=== PATIENT | male | born 1945 | race Caucasian/White ===

== ENCOUNTER 2022-08-03 14:31 | Outpatient (CLI) | payer MEDICARE, BC, SELFPAY ==
--- NOTE | 2022-08-03 12:15 | DI.RAD_ITS ---
Exam(s) XR LUMBAR SPINE COMPLETE EXAM: XR LUMBAR SPINE COMPLETE CLINICAL HISTORY: evaluate pathology,back pain, m54.50. TECHNIQUE: 2D digital imaging was performed of the lumbar spine. Five images were obtained. AP, la teral, right oblique, left oblique and L5-S1 spot views were obtained. COMPARISON: No exams were available for comparison FINDINGS: BONES: No fracture or destructive lesion. There are endplate osteophytes at multiple levels of the maryuri mbar spine. There are degenerative changes of the facets in the lower lumbar spine. DISKS: There is mild disc space narrowing at T12-L1 and L3-L4. ALIGNMENT: There is a mild left convex curvature of the lumbar spine. 2-3 mm anterolisthesis of L4 o n L5 is noted which is likely degenerative. No spondylolysis. SOFT TISSUE: Atherosclerosis is present. IMPRESSION: [id number] degenerative changes in the lumbar spine. DATA REPOSITORY: RADIATION DOSE DELIVERED:
== END 2022-08-03 14:51 ==
LOC: DI 14:32
PROVIDERS: Visit Provider Nurse Practitioner Family
DX: M51.36 Other intervertebral disc degeneration, lumbar region; M54.50 Low back pain, unspecified
CPT/HCPCS: 72110

== ENCOUNTER 2023-02-15 19:02 | Emergency (ER) | payer MEDICARE, BC, SELFPAY ==
[2023-02-15] VITALS (35 sets, daily range): BP systolic 126–173; BP diastolic 36–87; PULSE 44–66; RESP 18; TEMP 36.2–36.3; O2SAT 95–99
[2023-02-15] MEDS: DEXTROSE 5%-0.45% SALINE 1,000 ML 100 ML IV (19:22)
[2023-02-15 19:23] LABS: Abs Immature Grans 0.01 10^3/uL (0.0-0.06); Absolute Basophil Count 0.05 10^3/uL (0.0-0.2); Absolute Lymphocyte Count 2.91 10^3/uL (1.2-3.4); Absolute Monocyte Count 0.68 10^3/uL (0.1-0.8); Basophils % 0.7; Eosinophils % 1.5; HCT 49.2 % (40.0-50.0); HGB 16.7 g/dL (13.5-17.5); Immature Grans % 0.1; Lymphocytes % 42.5; MCH 31.6 pg (27.0-33.0); MCHC 33.9 % (32.0-36.0); MCV 93 fL (80-95); Monocytes % 9.9; Neutrophils % 45.3; Platelet Count 147 10^3/uL (130-400); RBC 5.28 10^6/uL (4.36-5.78); RDW-SD 41.8 fL; WBC 6.85 10^3/uL (4.4-10.8)
[2023-02-15 19:37] LABS: ALT 35 U/L (16-63); AST 80 U/L (15-37); Albumin 4.2 g/dL (3.4-5.0); Alkaline Phosphatase 86 U/L (46-116); Anion Gap 8.9 mmol/L (3-11); BUN 24 mg/dL (7-18); Bilirubin, Total 0.5 mg/dL (0.2-1.0); CO2 29.1 mmol/L (21.0-32.0); CREATININE 1.4 mg/dL (0.70-1.30); Calcium 9.9 mg/dL (8.5-10.1); Chloride 102 mmol/L (98-107); Estimated GFR 51.45 (mL/min/1.73m2); Glucose 115 mg/dL (74-106); Potassium 3.8 mmol/L (3.5-5.1); Sodium 140 mmol/L (136-145); Total Protein 8.3 g/dL (6.4-8.2)
--- NOTE | 2023-02-15 20:02 | ED.GENADUL_ITS ---
Discharge Plan Disposition Patient Disposition: Home Condition: Good Discharge Details Clinical Impression: Hypoglycemia Primary Care Provider: None,None ED Provider: Dwight Courtney Home Meds and New Rx's Prescriptions: No Action insulin degludec [Tresiba FlexTouch U-100] 100 unit/mL (3 mL) insulin pen 20 unit subcut DAILY insulin aspart U-100 [Novolog FlexPen U-100 Insulin] 100 unit/mL (3 mL) in sulin pen 1 sliding scale dose subcut TID metoprolol succinate 25 mg tablet extended release 24 hr 25 mg PO DAILY rosuvastatin 40 mg tablet 40 mg PO DAILY aspirin 81 mg capsule 81 mg PO DAILY Discharge Instructions Instructions: Hypoglycemia in a Person with Diabetes (ED) Additional Instructions: At this time your blood sugar has stabilized. Please continue to snack throughout the night. Please monitor your blood sugars closely. If you notice any worsening of your symptoms, or any new symptoms such as vomiting, diarrhea, fever, chills, shortness of breath, chest pain, numbness, weakness, or fainting , please return immediately to the emergency department for reevaluation. Please follow up with your primary care provider as soon as possible for reassessment and reevaluation. As always, it was a pleasure participating in your medical care today. 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 Patient normally takes 20 units of short acting insulin and 20 units daily of his long-acting insulin. This evening he took 22 units total of his short acting insulin at once. He immediately came to the ER for further assessment. He states that it was an accident and simply got the colors mixed up when he reached for his insulin. He denies any symptoms of chest pain, shortness of breath, lightheadedness, numbness, tingling, or weakness. Exam demonstrates a well-appearing male, no deficits. Bedside blood glucose was 120. We will start D5 half-normal at 100 cc/h, we will monitor his glucose closely and reassess. 8:14 PM Blood sugars dropped to 85, patient remains asymptomatic. We will give an amp of D50 and continue D5 half-normal. We will also give crackers and peanut butter. 9 PM Blood sugar remains at 85, additional amp of D50 will be given, and D5 half- normal will be increased to 200 cc/h. 9:37 PM Blood sugar is 145. We will continue to monitor closely. Patient remains asymptomatic. 11:53 PM Patient's blood sugar is 165. He feels very well. Patient's blood sugars no longer decreasing. D5 was stopped over an hour and a half ago. He is doing very well. Patient stable for discharge. Discussed red flags which to return. I have extensively reviewed the treatment plan and discharge instructions with the patient. I have addressed all patient concerns at this time. The patient was made aware of what symptoms to monitor for that would warrant a return to the emergency department. Discussed the plan with the patient, they demonstrate verbal understanding and agreement with our assessment and plan at this time. The documentation in this chart was dictated using [employer] dictation software. Please excuse any dictation errors. HPI General Date/Time Provider Initiated Documentation: 02/15/23 19:11 . 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 Patient normally takes 20 units of short acting insulin and 20 units daily of his long-acting insulin. This evening he took 22 units total of his short acting insulin at once. He immediately came to the ER for further assessment. He states that it was an accident and simply got the colors mixed up when he reached for his insulin. He denies any symptoms of chest pain, shortness of breath, lightheadedness, numbness, tingling, or weakness. Related Data Home Medications Medication Instructions Recorded Confirmed insulin aspart U-100 100 unit/mL 1 sliding scale dose subcut TID 07/26/22 02/15/23 (3 mL) subcutaneous pen (Novolog FlexPen U-100 Insulin aspart) insulin degludec 100 unit/mL (3 20 unit subcut DAILY 07/26/22 02/15/23 mL) subcutaneous pen (Tresiba FlexTouch U-100 insulin) metoprolol succinate 25 mg 25 mg PO DAILY 07/26/22 02/15/23 tablet,extended release 24 hr rosuvastatin 40 mg tablet 40 mg PO DAILY 07/26/22 02/15/23 aspirin 81 mg capsule 81 mg PO DAILY 02/15/23 02/15/23 Allergies Allergy/AdvReac Type Severity Reaction Status Date / Time No Known Allergies Allergy Verified 02/15/23 19:25 General Stated Complaint: [employer] MAXIMINO: 3 Review of Systems All systems reviewed & are unremarkable except as noted in HPI and below PFSH All Active Problems (Updated 02/15/23 @ 23:37 by Dwight Courtney DO) Hypoglycemia (Acute) Social History Smoking/Tobacco Use Status: Never Smoking risk assessment performed?: Yes Alcohol Intake: current Alcohol Intake frequency: a few times a week Substance use type: does not use Do you feel safe at home: Yes Do you feel safe in your relationship?: Yes Exam Narrative Exam Narrative: 1.Const: Well-nourished, Well-developed, appearing stated age 2.Eyes: PERRL, no conjunctival injection, and symmetrical lids. 3.ENT: Atraumatic external nose and ears. Slightly dry MM. Neck: Symmetric, trachea midline, No thyromegaly. 4.CVS: +S1/S2, No murmurs or gallops. Peripheral pulses 2+ and equal in all extremities. Brisk capillary refill in all extremities. 5.RESP: Unlabored respiratory effort. Clear to auscultation bilaterally. No wheezes rales or rhonchi 6.GI: Soft, Nontender/Nondistended, No hepatosplenomegaly. No guarding or rebound. 7.MSK: Normocephalic/Atraumatic, Extremities w/o deformity or ttp No cyanosis or clubbing, Normal movement of all extremities 8.Skin: Warm, Dry. No rashes or lesions. 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 Sensation grossly intact, no focal neurologic deficits. 10.Psych: (AAO) x3. Appropriate mood and affect Course Vital Signs Vital signs: Vital Signs Temperature 36.2 C L 02/15/23 19:07 Pulse 55 L 02/15/23 19:07 Respiratory Rate 18 02/15/23 19:07 Blood Pressure 172/87 H 02/15/23 19:07 Pulse Oximetry 99 02/15/23 19:07 Temperature 36.3 C L 02/15/23 19:12 Temperature Source Temporal Artery Scan 02/15/23 19:07 Pulse 45 L 02/15/23 19:32 Respiratory Rate 18 02/15/23 19:12 Respiratory Effort Normal 02/15/23 19:12 Respiratory Depth Normal 02/15/23 19:12 Respiratory Pattern Normal 02/15/23 19:12 Blood Pressure 139/64 02/15/23 19:32 Blood Pressure Mean 88 02/15/23 19:32 Blood Pressure Position Sitting 02/15/23 19:07 Pulse Oximetry 96 02/15/23 19:32 Oxygen Delivery Method Room Air 02/15/23 19:12 Oxygen Flow Rate 0 02/15/23 19:07 Pain Level 0 02/15/23 19:12 Lab/Test Results Lab/Test Results: Laboratory Tests Range/Units 02/15/23 19:15 WBC (4.4-10.8) 10^3/uL 6.85 RBC (4.36-5.78) 10^6/uL 5.28 Hgb (13.5-17.5) g/dL 16.7 Hct (40.0-50.0) % 49.2 MCV (80-95) fL 93 MCH (27.0-33.0) pg 31.6 MCHC (32.0-36.0) % 33.9 RDW (11.8-14.1) % 12.0 Plt Count (130-400) 10^3/uL 147 MPV (8.0-11.0) fL 9.0 Immature Gran % 0.1 Neutrophils % 45.3 Lymphocytes % 42.5 Monocytes % 9.9 Eosinophils % 1.5 Basophils % 0.7 Nucleated RBC % (0.0-0.3) % 0.0 Absolute Neutrophils (1.2-6.7) 10^3/uL 3.10 Absolute Lymphocytes (1.2-3.4) 10^3/uL 2.91 Absolute Monocytes (0.1-0.8) 10^3/uL 0.68 Absolute Eosinophils (0.0-0.7) 10^3/uL 0.10 Absolute Basophils (0.0-0.2) 10^3/uL 0.05 Sodium (136-145) mmol/L 140 Potassium (3.5-5.1) mmol/L 3.8 Chloride (98-107) mmol/L 102 Carbon Dioxide (21.0-32.0) mmol/L 29.1 Anion Gap (3-11) mmol/L 8.9 BUN (7-18) mg/dL 24 H Creatinine (0.70-1.30) mg/dL 1.4 H Est GFR (CKD-EPI 2020) (mL/min/1.73m2) 51.45 Glucose (74-106) mg/dL 115 H Calcium (8.5-10.1) mg/dL 9.9 Total Bilirubin (0.2-1.0) mg/dL 0.5 AST (15-37) U/L 80 H ALT (16-63) U/L 35 Alkaline Phosphatase (46-116) U/L 86 Total Protein (6.4-8.2) g/dL 8.3 H Albumin (3.4-5.0) g/dL 4.2 Critical Care Time Critical Care Time Critical Care Time: Yes Total Critical Care Time: 45 Attestation: Upon my evaluation, this patient had a high probability of imminent or life- threatening deterioration, which required my direct attention, intervention, and personal management. I have personally provided 45 minutes of critical care time exclusive of time spent on separately billable procedures. Time includes review of laboratory data, radiology results, discussion with consultants, and monitoring for potential decompensation. Interventions were performed as documented. PAWSS Have you Been Recently Intoxicated or Drunk Within the Last 30 days?: No Have you Ever Experienced Previous Episodes of Alcohol Withdrawal?: No Have you ever Experienced Withdrawal Seizures?: No Have you ever Experienced Delirium Tremens(DT)s?: No Have you ever undergone Alcohol Rehabilitation Treatment (i.e, inpt ot outpatient treatment programs)?: No Have you ever Experienced Blackouts?: No Have you ever Combined Alcohol with other Downers within the last 90 days?: No Have you ever Combined Alcohol with any other Substance of Abuse during the last 90 days?: No Positive Blood Alcohol level on Presentation? [PCS.BAL]: Unable to Obtain Evidence of Increased Autonomic Activity (i.e. HR>120, tremor, sweating, agitation, nausea)?: Unable to Obtain Result: 0
[2023-02-15] MEDS: Dextrose 50%-Water 25 GM/50 ML SYR IVP ×2 (20:13→21:14)
== END 2023-02-15 23:56 | disposition home or self-care (01) ==
PROVIDERS: Emergency Provider Student in an Organized Health Care Education/Training Program
DX: T38.3X1A Poisoning by insulin and oral hypoglycemic [antidiabetic] drugs, accidental (unintentional), initial encounter (principal); E11.649 Type 2 diabetes mellitus with hypoglycemia without coma; Z79.4 Long term (current) use of insulin; E78.00 Pure hypercholesterolemia, unspecified; Z79.82 Long term (current) use of aspirin; Z79.899 Other long term (current) drug therapy
CPT/HCPCS: 80053; 82962; 96365; 96366; 99291; 85025

== ENCOUNTER → 2024-10-25 10:18 | Outpatient (BNVA) | payer MEDICARE, BC, SELFPAY | PROVIDERS: Visit Provider Student in an Organized Health Care Education/Training Program | DX: M65.321 Trigger finger, right index finger (principal) | CPT/HCPCS: 20550; J1010 ==

== ENCOUNTER 2025-03-05 21:34 | Emergency (ER) | payer MEDICARE, BC, SELFPAY ==
[2025-03-05] VITALS (9 sets, daily range): BP systolic 132–193; BP diastolic 62–78; PULSE 80–86; RESP 12–21; O2SAT 99
--- NOTE | 2025-03-05 21:50 | W.ED.GENAD ---
Discharge Plan Discharge Details Chief Complaint: Diabetes Primary Care Provider: Unknown,Unknown ED Provider: Dwight Courtney Home Meds and New Rx's Prescriptions: No Action insulin degludec [Tresiba FlexTouch U-100] 100 unit/mL (3 mL) insulin pen 16 unit subcut DAILY insulin aspart U-100 [Novolog FlexPen U-100 Insulin] 100 unit/mL (3 mL) insulin pen 1 sliding scale dose subcut TID metoprolol succinate 25 mg tablet extended release 24 hr 25 mg PO DAILY rosuvastatin 40 mg tablet 40 mg PO DAILY aspirin 81 mg capsule 81 mg PO DAILY HPI <Sue Valenzuela NP - Last Filed: 03/06/25 00:34> General Mode of arrival: ambulatory. Date/Time Provider Initiated Documentation: 03/05/25 21:43. Limitations to Documentation: no limitations. Information obtained by: patient, RN notes reviewed and old records reviewed. HPI Narrative: 79-year-old male presents to the ER after accidentally taking 16 units of NovoLog approximately an hour ago prior to arrival. He normally takes 4 units of NovoLog with meals and 16 units of Tresiba. He realized instantly his mistake and took 310 mg glucose tablets. Currently he denies any symptoms and his blood sugar is 177 upon arrival. Related Data Home Medications ?Medication ?Instructions ?Recorded ?Confirmed insulin aspart U-100 100 unit/mL 1 sliding scale dose subcut TID 07/26/22 03/05/25 (3 mL) subcutaneous pen (Novolog FlexPen U-100 Insulin aspart) insulin degludec 100 unit/mL (3 16 unit subcut DAILY 07/26/22 03/05/25 mL) subcutaneous pen (Tresiba FlexTouch U-100 insulin) metoprolol succinate 25 mg 25 mg PO DAILY 07/26/22 03/05/25 tablet,extended release 24 hr rosuvastatin 40 mg tablet 40 mg PO DAILY 07/26/22 03/05/25 aspirin 81 mg capsule 81 mg PO DAILY 02/15/23 03/05/25 Allergies Allergy/AdvReac Type Severity Reaction Status Date / Time No Known Allergies Allergy Verified 03/05/25 21:42 General Stated Complaint: Diabetes MAXIMINO: 3 Review of Systems <Sue Valenzuela NP - Last Filed: 03/06/25 00:34> All systems reviewed & are unremarkable except as noted in HPI and below Endocrine Endocrine: Reports as per HPI Exam <Sue Valenzuela NP - Last Filed: 03/06/25 00:34> Narrative Exam Narrative: Constitutional: Alert and oriented x3. Appears stated age. Normal body habitus. Head: Normocephalic, no trauma. Eyes: Pupils PERRL, Red reflex noted, EOM's intact. Eyelids symmetrical without lesions, discharge, or swelling. ENT: Bilateral TM's WNL, External ear normal to inspection, no mastoid TTP, swelling, or erythema, Nasal turbinates WNL, no nasal discharge. Normal dentition, Posterior pharynx WNL, no exudate. Chest: RRR, Normal S1, S2, distal pulses intact. Resp: Lungs clear to auscultation bilaterally, no wheezes, rales, or rhonchi. Abdomen: Soft, non-distended, Normoactive bowel sounds all 4 quads. Musculoskeletal: Normal gait, Moves all 4 extremities without difficulty. Skin: No suspicious rashes or lesions. Capillary refill less than 2 sec. Neurologic: Cranial nerves II-XII intact. Alert and oriented x 3. Motor: No deficits noted. Sensory: Intact bilaterally all 4 extremities. Hematologic/Lymphatic: No ecchymosis, no lymphadenopathy. Course <Sue Valenzuela NP - Last Filed: 03/06/25 00:34> Vital Signs Vital signs: Vital Signs Pulse 85 03/05/25 21:38 Respiratory Rate 16 03/05/25 21:38 Blood Pressure 193/78 H 03/05/25 21:38 Pulse Oximetry 99 03/05/25 21:38 Pulse 85 03/05/25 21:44 Respiratory Rate 16 03/05/25 21:44 Blood Pressure 193/78 H 03/05/25 21:44 Blood Pressure Position Sitting 03/05/25 21:44 Pulse Oximetry 99 03/05/25 21:44 Oxygen Delivery Method Room Air 03/05/25 21:44 Oxygen Flow Rate 0 03/05/25 21:44 Pain Level 0 03/05/25 21:44 Medical Decision Making <Sue Valenzuela NP - Last Filed: 03/06/25 00:34> 79-year-old male presents to the ER after accidentally taking 16 units of NovoLog approximately an hour ago prior to arrival. He normally takes 4 units of NovoLog with meals and 16 units of Tresiba. He realized instantly his mistake and took 310 mg glucose tablets. Currently he denies any symptoms and his blood sugar is 177 upon arrival. Will start an IV line and draw some labs and recheck his blood glucose every hour. Will consider feeding patient and also may be giving some D50. Patient requesting some dextrose, he has checked his own BGL and it is now 130. Patient given crackers and peanut butter, 1 amp D-25 given IVP. Repeat BGL 146 after amp of D25, will recheck BGL every 30 min. BGL 99 prior to second D25 ampule. Will order D5 NS at 100ml/hr and continue to monitor. 2349: BGL of 61, will give another D50 amp IVP. Care is to be handed off to oncoming provider Elvin Courtney for further observation and disposition. This text was generated using [employer] dictation system, please disregard any oddities of phrase or misspellings. Lab Data Lab results reviewed: Yes I reviewed the patient's lab results. Labs: Laboratory Tests Range/Units 03/05/25 21:55 WBC (4.4-10.8) 10^3/uL 4.77 RBC (4.36-5.78) 10^6/uL 4.78 Hgb (13.5-17.5) g/dL 15.0 Hct (40.0-50.0) % 44.4 MCV (80-95) fL 93 MCH (27.0-33.0) pg 31.4 MCHC (32.0-36.0) % 33.8 RDW (11.8-14.1) % 11.5 L Plt Count (130-400) 10^3/uL 135 MPV (8.0-11.0) fL 9.3 Immature Gran % % 0.0 Neutrophils % % 44.9 Lymphocytes % % 41.1 Monocytes % % 11.5 Eosinophils % % 1.9 Basophils % % 0.6 Nucleated RBC % (0.0-0.3) % 0.0 Absolute Neutrophils (1.2-6.7) 10^3/uL 2.14 Absolute Lymphocytes (1.2-3.4) 10^3/uL 1.96 Absolute Monocytes (0.1-0.8) 10^3/uL 0.55 Absolute Eosinophils (0.0-0.7) 10^3/uL 0.09 Absolute Basophils (0.0-0.2) 10^3/uL 0.03 Sodium (136-145) mmol/L 141 Potassium (3.5-5.1) mmol/L 3.8 Chloride (98-107) mmol/L 103 Carbon Dioxide (20.0-31.0) mmol/L 27.0 Anion Gap (3-11) mmol/L 11 BUN (9-23) mg/dL 24 H Creatinine (0.73-1.18) mg/dL 1.21 H Est GFR (CKD-EPI 2020) (mL/min/1.73m2) 57.64 Glucose (74-106) mg/dL 168 H Calcium (8.3-10.6) mg/dL 9.7 Total Bilirubin (0.2-1.2) mg/dL 0.6 AST (<34) U/L 64 H ALT (10-49) U/L 18 Alkaline Phosphatase (46-116) U/L 65 Total Protein (5.7-8.2) g/dL 7.4 Albumin (3.2-5.0) g/dL 4.4 <Zoran Rose MD - Last Filed: 03/05/25 23:43> Date: 03/05/25 Time: 23:43 Note: Patient was seen and evaluated with SUMAYA Valenzuela. I agree with treatment plan as discussed and documented. PFSH <Sue Valenzuela NP - Last Filed: 03/06/25 00:34> All Active Problems (Updated 10/26/24 @ 06:57 by Chandler Murry MD) Trigger finger, right index finger (Acute) Social History Smoking/Tobacco Use Status: Never Smoking risk assessment performed?: Yes Alcohol Intake: current Alcohol Intake frequency: a few times a week Substance use type: does not use Housing: house Do you feel safe at home: Yes Do you feel safe in your relationship?: Yes
[2025-03-05 22:08] LABS: Abs Immature Grans 0.00 10^3/uL (0.0-0.06); HCT 44.4 % (40.0-50.0); HGB 15.0 g/dL (13.5-17.5); Immature Grans % 0.0 %; MCH 31.4 pg (27.0-33.0); MCHC 33.8 % (32.0-36.0); MCV 93 fL (80-95); MPV 9.3 fL (8.0-11.0); Platelet Count 135 10^3/uL (130-400); RBC 4.78 10^6/uL (4.36-5.78); RDW 11.5 % (11.8-14.1); RDW-SD 39.2 fL; WBC 4.77 10^3/uL (4.4-10.8)
[2025-03-05] MEDS: Dextrose 25%-Water 10 ML SYR IVP ×2 (22:30→23:11)
[2025-03-05 22:32] LABS: ALT 18 U/L (10-49); AST 64 U/L (<34); Albumin 4.4 g/dL (3.2-5.0); Alkaline Phosphatase 65 U/L (46-116); Anion Gap 11 mmol/L (3-11); BUN 24 mg/dL (9-23); Bilirubin, Total 0.6 mg/dL (0.2-1.2); CO2 27.0 mmol/L (20.0-31.0); Calcium 9.7 mg/dL (8.3-10.6); Chloride 103 mmol/L (98-107); Glucose 168 mg/dL (74-106); Potassium 3.8 mmol/L (3.5-5.1); Sodium 141 mmol/L (136-145); Total Protein 7.4 g/dL (5.7-8.2)
[2025-03-05] MEDS: DEXTROSE 5%-0.9% SALINE 1,000 ML 100 ML IV (23:44)
[2025-03-05] MEDS: Dextrose 50%-Water 25 GM/50 ML SYR (23:59)
[2025-03-06] VITALS (11 sets, daily range): BP systolic 108–167; BP diastolic 50–93; PULSE 81–94; RESP 11–23; O2SAT 97–99
--- NOTE | 2025-03-06 01:22 | W.EDPROG ---
Date of service: 03/06/25 Time of Service: 01:23 Medical Decision Making Patient was signed out to me pending Accu-Chek rechecks. Patient has been observed, he has been in the ED greater than 4 hours. Sugars have normalized, blood sugar is now rising at a steady rate. Patient feels well and would like to go home. He has the Dexcom monitoring system which will alert if his sugar goes low again. He has multiple family members at home who will watch him tonight. Patient feels comfortable with the plan, and is requesting discharge. Discussed red flags for which to return. I have extensively reviewed the treatment plan and discharge instructions with the patient. I have addressed all patient concerns at this time. The patient was made aware of what symptoms to monitor for that would warrant a return to the emergency department. Discussed the plan with the patient, they demonstrate verbal understanding and agreement with our assessment and plan at this time. The documentation in this chart was dictated using [employer] dictation software. Please excuse any dictation errors. Discharge Plan Disposition Patient Disposition: Home Condition: Good Discharge Details Clinical Impression: Hypoglycemia Primary Care Provider: Unknown,Unknown ED Provider: Dwight Courtney Home Meds and New Rx's Prescriptions: No Action insulin degludec [Tresiba FlexTouch U-100] 100 unit/mL (3 mL) insulin pen 16 unit subcut DAILY insulin aspart U-100 [Novolog FlexPen U-100 Insulin] 100 unit/mL (3 mL) insulin pen 1 sliding scale dose subcut TID metoprolol succinate 25 mg tablet extended release 24 hr 25 mg PO DAILY rosuvastatin 40 mg tablet 40 mg PO DAILY aspirin 81 mg capsule 81 mg PO DAILY Discharge Instructions Additional Instructions: At this time your blood sugar has normalized and stabilized. Please continue eating when you get home, monitor your sugar closely with your glucose monitor. If you notice any worsening of your symptoms, or any new symptoms such as vomiting, diarrhea, fever, chills, shortness of breath, chest pain, numbness, weakness, or fainting , please return immediately to the emergency department for reevaluation. Please follow up with your primary care provider as soon as possible for reassessment and reevaluation. As always, it was a pleasure participating in your medical care today. Stand Alone Forms: Portal Information
== END 2025-03-06 01:28 | disposition home or self-care (01) ==
PROVIDERS: Registered Nurse Emergency; Emergency Provider Student in an Organized Health Care Education/Training Program
DX: E11.649 Type 2 diabetes mellitus with hypoglycemia without coma (principal)
CPT/HCPCS: 99284 ×2; 36415; 36416; 82962; 96374; 96375; 00123; 80053; 96361; 85025; J7042